=== PATIENT | female | born 1960 | race Caucasian/White ===

== ENCOUNTER 2016-09-22 03:09 | Emergency (ER) | payer MEDICAID, MEDICARE ==
[~2016-09-22] VITALS: Ht 149.9 cm; Wt 72.6 kg
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
[2016-09-22] MEDS ORDERED: RX-NAPROXEN (NAPROSYN) 250 MG TAB PPK#4 PO STA (03:58)
[2016-09-22] MEDS ORDERED: RX-HYDROCODONE/APAP 5/325 MG #4 TAB PK PO PRN (04:00)
[2016-09-22] MEDS ORDERED: HYDR-87 PO (04:07)
[2016-09-22 04:16] VITALS: BP 116/80
--- NOTE | 2016-09-22 07:38 | Diagnostic Imaging Report ---
INDICATION: Fracture FINDINGS: Impacted comminuted dorsally angulated distal radial fractures present. There is a lucent fracture line extending through the articular surface of the ulnar margin of the radius. The distal ulna itself appeared intact and there was no carpal fracture. IMPRESSION: Impacted intra-articular dorsally angulated distal radial Colles' fracture. Dictated by: Dictated on workstation # [id number]
== END 2016-09-22 04:16 | disposition home or self-care (01) ==
LOC: EDUNIT# 03:09 → ER 03:14
DX: S52.531A Colles' fracture of right radius, initial encounter for closed fracture (principal); W19.XXXA Unspecified fall, initial encounter; Y92.019 Unspecified place in single-family (private) house as the place of occurrence of the external cause; Y99.8 Other external cause status
CPT/HCPCS: 29125; 73110